=== PATIENT | female | born 1990 | race Caucasian/White ===

== ENCOUNTER 2019-04-03 17:46 | Emergency (ER) | payer OTHER ==
[~2019-04-03] VITALS: Ht 154.9 cm; Wt 101.8 kg
[2019-04-03 18:01] VITALS: BP 123/72; PULSE 101; TEMP 98.2
== END 2019-04-03 20:07 | disposition home or self-care (01) ==
LOC: COL.ER 17:46
PROVIDERS: Emergency Medicine
DX: Z32.02 Encounter for pregnancy test, result negative (principal); Z98.890 Other specified postprocedural states